=== PATIENT | male | born 1975 | race Two or more races ===

== ENCOUNTER 2021-12-06 07:06 | Outpatient (REF) | payer OTHER, SELFPAY ==
[2021-12-06 07:44] LABS: Hematocrit 39.4 % (42.0-52.0); Hemoglobin 12.5 g/dl (14.0-18.0); Mean Corpuscular HGB Conc 31.7 g/dl (31.0-36.0); Mean Corpuscular Volume 91.4 fL (80.0-98.0); Platelet Count 241 X10*3/uL (160-400); Red Blood Count 4.31 X10*6/uL (4.60-5.80); Red Cell Distribution Width 12.8 % (11.0-16.0); White Blood Count 5.5 X10*3/uL (4.8-10.8)
[2021-12-06 08:13] LABS: Estimated Average Glucose 105 mg/dL; Hemoglobin A1c % 5.3 %
[2021-12-06 08:32] LABS: Alanine Aminotransferase 21 U/L (0-40); Albumin Level 4.2 g/dL (3.5-5.0); Alkaline Phosphatase 48 U/L (39-117); Anion Gap 12 (12-20); Aspartate Amino Transferase 20 U/L (5-37); Bilirubin Total 0.3 mg/dL (0.0-1.0); Blood Urea Nitrogen 18 mg/dL (9-16); Calcium 9.6 mg/dL (8.4-10.2); Carbon Dioxide 27 mmol/L (22-29); Chloride 107 mmol/L (96-108); Cholesterol 196 mg/dL; Estimated Glomerular Filt Rate > 60; Glucose Fasting 100 mg/dL (60-99); HDL Cholesterol 40 mg/dL; LDL Cholesterol Calculated 130 mg/dl; Potassium 4.5 mmol/L (3.3-5.1); Sodium 141 mmol/L (135-145); Total Protein 7.6 g/dL (6.5-8.0); Triglycerides 132 mg/dL
[2021-12-06 08:36] LABS: TSH reflex Free T4 11.76 uIU/mL (0.32-4.0)
[2021-12-06 09:43] LABS: Free T4 (Free Thyroxine) 0.84 ng/dL (0.71-1.85)
== END 2021-12-06 07:07 | disposition home or self-care (01) ==
LOC: HO.LAB 07:06
PROVIDERS: PCP Physician Assistant; Visit Provider Physician Assistant
DX: Z13.29 Encounter for screening for other suspected endocrine disorder (principal); Z13.220 Encounter for screening for lipoid disorders
CPT/HCPCS: 36415; 80053; 80061; 83036; 84439; 84443; 85027

== ENCOUNTER 2022-03-21 06:57 | Outpatient (REF) | payer OTHER, SELFPAY ==
[2022-03-21 08:05] LABS: Estimated Average Glucose 108 mg/dL; Hemoglobin A1c % 5.4 %
[2022-03-21 08:11] LABS: Alanine Aminotransferase 15 U/L (0-40); Albumin Level 4.1 g/dL (3.5-5.0); Alkaline Phosphatase 43 U/L (39-117); Anion Gap 10 (12-20); Aspartate Amino Transferase 16 U/L (5-37); Bilirubin Total 0.2 mg/dL (0.0-1.0); Blood Urea Nitrogen 13 mg/dL (9-16); Calcium 9.3 mg/dL (8.4-10.2); Carbon Dioxide 26 mmol/L (22-29); Chloride 109 mmol/L (96-108); Cholesterol 172 mg/dL; Estimated Glomerular Filt Rate > 60; Glucose Fasting 102 mg/dL (60-99); HDL Cholesterol 41 mg/dL; LDL Cholesterol Calculated 113 mg/dl; Potassium 4.4 mmol/L (3.3-5.1); Sodium 141 mmol/L (135-145); Triglycerides 90 mg/dL
[2022-03-21 08:33] LABS: TSH reflex Free T4 9.63 uIU/mL (0.32-4.0)
== END 2022-03-21 06:58 | disposition home or self-care (01) ==
LOC: HO.LAB 06:57
PROVIDERS: Visit Provider Physician Assistant
DX: Z13.1 Encounter for screening for diabetes mellitus (principal); Z13.220 Encounter for screening for lipoid disorders; E03.9 Hypothyroidism, unspecified
CPT/HCPCS: 36415; 80053; 80061; 83036; 84439; 84443

== ENCOUNTER → 2022-10-06 14:14 | Outpatient (BNVA) | payer OTHER, SELFPAY | PROVIDERS: PCP Physician Assistant; Visit Provider Urology | DX: Z30.2 Encounter for sterilization (principal); F41.8 Other specified anxiety disorders | CPT/HCPCS: 55250 ==

== ENCOUNTER 2022-12-26 11:54 | Outpatient (REF) | payer OTHER, SELFPAY ==
[2022-12-26 12:15] LABS: Hematocrit 37.7 % (42.0-52.0); Hemoglobin 12.3 g/dl (14.0-18.0); Mean Corpuscular HGB Conc 32.6 g/dl (31.0-36.0); Mean Corpuscular Hemoglobin 29.9 pg (27.0-33.0); Mean Corpuscular Volume 91.7 fL (80.0-98.0); Mean Platelet Volume 10.5 fL (9.4-12.4); Platelet Count 238 X10*3/uL (160-400); Red Blood Count 4.11 X10*6/uL (4.60-5.80); Red Cell Distribution Width 12.2 % (11.0-16.0)
[2022-12-26 14:56] LABS: Alanine Aminotransferase 18 U/L (0-40); Albumin Level 4.3 g/dL (3.5-5.0); Alkaline Phosphatase 53 U/L (39-117); Anion Gap 11 (12-20); Aspartate Amino Transferase 18 U/L (5-37); Bilirubin Total 0.8 mg/dL (0.0-1.0); Blood Urea Nitrogen 16 mg/dL (9-16); Calcium 9.9 mg/dL (8.4-10.2); Carbon Dioxide 28 mmol/L (22-29); Chloride 105 mmol/L (96-108); Cholesterol 201 mg/dL; Estimated Glomerular Filt Rate > 60; Glucose Fasting 87 mg/dL (60-99); HDL Cholesterol 45 mg/dL; LDL Cholesterol Calculated 138 mg/dl; Potassium 4.3 mmol/L (3.3-5.1); Sodium 140 mmol/L (135-145); Total Protein 7.2 g/dL (6.5-8.0); Triglycerides 93 mg/dL
[2022-12-26 18:43] LABS: TSH reflex Free T4 8.23 uIU/mL (0.32-4.0)
== END 2022-12-26 11:55 | disposition home or self-care (01) ==
LOC: HO.LAB 11:54
PROVIDERS: PCP Physician Assistant; Visit Provider Physician Assistant
DX: E03.9 Hypothyroidism, unspecified (principal)
CPT/HCPCS: 36415; 80053; 80061; 84439; 84443; 85027

== ENCOUNTER → 2023-01-04 15:15 | Outpatient (BNVA) | payer OTHER, SELFPAY | PROVIDERS: PCP Physician Assistant; Visit Provider Urology | DX: Z13.89 Encounter for screening for other disorder (principal) ==

== ENCOUNTER 2023-06-22 06:59 | Outpatient (REF) | payer OTHER, SELFPAY ==
[2023-06-22 08:19] LABS: TSH reflex Free T4 5.91 uIU/mL (0.32-4.0)
[2023-06-22 08:57] LABS: Free T4 (Free Thyroxine) 0.85 ng/dL (0.71-1.85)
== END 2023-06-22 07:00 | disposition home or self-care (01) ==
LOC: HO.LAB 06:59
PROVIDERS: PCP Physician Assistant; Visit Provider Physician Assistant
DX: E03.9 Hypothyroidism, unspecified (principal)
CPT/HCPCS: 36415; 84439; 84443

== ENCOUNTER 2023-06-27 14:19 | Outpatient (AMB) | payer OTHER, SELFPAY ==
[2023-06-27 14:28] VITALS: BP 90/58; PULSE 76; RESP 17; O2SAT 98; BMI 28.9
--- NOTE | 2023-06-27 14:28 | A.OFFPC_ITS ---
Vital Signs 06/27/23 14:28 Height 5 ft 11.5 in Weight 210 lb BMI 28.9 BP 90/58 L Blood Pressure Location Lt brachial Position Sitting Respiration 17 Pulse 76 Pulse Source Pulse Oximeter Pulse Oximetry (%) 98 Oxygen Delivery Method Room Air Intake Visit Reasons: f/u Hypoth Outside Machinist Required: No Accompanied by: Self / Same As Patient Allergies No Known Allergies Allergy (Verified 06/27/23 14:43) Medication List - Last Reconciled 06/27/23 by Fran Schmid PA-C levothyroxine 75 mcg PO DAILY 90 days Tobacco use date assessed: 12/26/22 Dental Screening Dental Screen Date: 06/27/23 Did you have a dental visit in the last 12 months?: Yes Did you have a dental problem in the last 6 months where you did not have access to dental care?: No Was dental information given to patient?: Patient has dentist HPI f/u Hypoth HPI Details Patient is a 47-year-old male here today for follow-up visit.? Patient has a past medical history significant for hypothyroidism, obesity. Hypothyroid:? Has lost a significant amount of weight due to intermittent fasting and being more physically active. TSH has been normalizing levothyroxine. Increase levothyroxine 75 mcg. Laboratory Tests 12/26/22 06/22/23 12:03 07:14 TSH 8.23 H 5.91 H [facility] Surgical History History of vasectomy History of appendectomy Family History Mother Breast cancer Social History Housing: House Alcohol intake: current Alcohol intake frequency: holidays/special occasions only Alcohol type: beer Patient Tobacco Use Status: Never used Tobacco Tobacco use type: Cigarette e-Cigarette/Vaping Use: Never Used Second Hand Smoke Exposure: No Substance Use Type: Marijuana service: No Current occupational status: employed Current occupation: [employer] Cognitive needs: No Hearing needs: No Vision needs: Yes (glasses) Questionnaire Thrive Questionnaire Date Thrive assessed: 12/26/22 LEATHA-7 AMB Questionnaire LEATHA-7 Date LEATHA - 7 assessed: 12/26/22 Source: Developed by Drs. Kit Garcia, Renee Kwan, Blu Conley and colleagues, with an educational ester from [employer]. Review of Systems Const Denies headache(s) Eyes Denies loss of vision ENT Denies vertigo, Denies dizziness, Denies headache(s) and Denies sore throat Card Denies chest pain, Denies leg edema and Denies lightheadedness Resp Denies cough, Denies hemoptysis and Denies wheezing GI Denies abdominal pain, Denies melena, Denies constipation, Denies diarrhea and Denies vomiting Denies dysuria, Denies urinary frequency and Denies urinary urgency Musc Denies arthralgias, Denies joint swelling, Denies numbness and Denies tingling Neuro Denies Abnormal speech present, Denies behavioral changes, Denies vertigo, Denies dizziness, Denies headache(s), Denies loss of vision, Denies memory loss, Denies numbness and Denies tingling Psych Denies anxiety, Denies behavioral changes, Denies depression, Denies memory loss and Denies panic attacks Jewel/Lymph Denies easy bleeding and Denies easy bruising Aller/Immun Denies wheezing Physical exam (Primary Care) Vital Signs: Last Vital Signs Pulse 76 06/27/23 14:28 Resp 17 06/27/23 14:28 BP 90/58 L 06/27/23 14:28 Pulse Ox 98 06/27/23 14:28 Oxygen Delivery Method Room Air 06/27/23 14:28 BMI result Body Mass Index 28.9 Tobacco/Smoking Status: Tobacco use Status Tobacco use date assessed 12/26/22 06/27/23 14:33 Patient Tobacco Use Status Never used Tobacco 06/27/23 14:33 Tobacco use type Cigarette 06/27/23 14:33 e-Cigarette/Vaping Use Never Used 06/27/23 14:33 Thrive Assessment: Date of Thrive Assessment Date Thrive assessed 12/26/22 06/27/23 14:33 Const General: healthy appearing, no acute distress, alert and awake Nutritional Appearance: well nourished Orientation/consciousness: oriented to person, oriented to place and oriented to time HENMT Ears: TM's normal bilaterally General nose exam: Normal nasal mucous membranes and turbinates present Eyes Conjunctivae: conjunctivae normal Sclerae: sclerae normal Pupils: Equal, round and reactive pupils present Neck Neck: Yes no lymphadenopathy and Yes no JVD Thyroid: Thyroid normal Carotids: no bruits Resp Effort & Inspection: normal respiratory effort and not tachypneic Auscultation: no crackles, no rales, no rhonchi and no wheezes Cardio Rate: regular rate Rhythm: regular rhythm Heart sounds: no murmurs and normal S1 and S2 GI Palpation (GI): Soft to palpation, nontender, no hepatomegaly and no splenomegaly Auscultation: normal bowel sounds Skin General skin exam: no rashes or lesions noted and dry skin Neuro General: oriented to person, oriented to place and oriented to time Cranial nerves: Yes Equal, round and reactive pupils present Speech: No Abnormal speech present Gait exam (Neuro): Normal gait present Motor exam (neuro): no tremor noted Extrem Right upper extremity: full ROM Left upper extremity: full ROM Right lower extremity: full ROM; no edema Left lower extremity: full ROM; no edema Psych Mental Status: mental status grossly normal Speech and movement: Normal speech and movement present Affect: normal affect Attitude: cooperative Thought process: Normal thought process present Office Procedures Flu Questionnaire Does the patient have a severe egg allergy?: No Does the patient have severe life threatening allergies?: No Does the patient have a fever or illness today?: No Has the patient ever had Guillain-[place] Syndrome?: No Has the patient ever had any past reaction to a flu shot?: No Immunizations flu vacc [id number] 6mos up(PF) 60 mcg(15 mcgx4)/0.5 mL IM syringe Performing Provider: Fran Schmid PA-C Performing Location: [facility] Administered by: ROMAINE Cloud on 06/27/23 14:35 Dose Route Admin Location Dispensed Lot Number Expiration Date NDC Drum Reel Cutter 0.5 mL IM Left Deltoid 0.5 mL [id number] 03/24/24 58062-327-49 [employer] VIS Given Date VIS Provided VIS Publication Date 06/27/23 Single Vaccine 21 Eligibility Eligibility Date Funding Source Not [facility] Eligible 06/27/23 Private Assessment and Plan Assessment & Plan (1) Hypothyroid: Code(s): E03.9 - Hypothyroidism, unspecified Qualifiers: Hypothyroidism type: unspecified Qualified Code(s): E03.9 - Hypothyroidism, unspecified Plan: Continues on levothyroxine. Most recent TSH slightly elevated at 5. Will increase his levothyroxine dose to 75 mcg. He has been implementing an intermittent visiting diet and being more physically active and has lost 35 lb since last office visit. Orders: Orders Influenza [id number] Immunization Today Z23 - Encounter for immunization Comprehensive [place]. Panel Fast Today Z13.1 - Encounter for screening for diabetes mellitus TSH reflex Free T4 Today E03.9 - Hypothyroidism, unspecified Coding Level of Care Code Est Pt Level 3 (89217) Diagnoses Hypothyroidism, unspecified type E03.9 Hypothyroidism type: unspecified
== END 2023-06-27 14:51 | disposition home or self-care (01) ==
PROVIDERS: Visit Provider Physician Assistant
DX: Z23 Encounter for immunization (principal); E03.9 Hypothyroidism, unspecified
CPT/HCPCS: 90471; 90686; 99213

== ENCOUNTER 2023-12-29 06:04 | Outpatient (REF) | payer OTHER, SELFPAY ==
[2023-12-29 07:22] LABS: Alanine Aminotransferase 15 U/L (0-40); Albumin Level 4.2 g/dL (3.5-5.0); Alkaline Phosphatase 51 U/L (39-117); Anion Gap 12 (12-20); Aspartate Amino Transferase 20 U/L (5-37); Bilirubin Total 0.8 mg/dL (0.0-1.0); Blood Urea Nitrogen 14 mg/dL (9-16); Calcium 9.5 mg/dL (8.4-10.2); Carbon Dioxide 28 mmol/L (22-29); Chloride 104 mmol/L (96-108); Estimated Glomerular Filt Rate > 60; Glucose Fasting 93 mg/dL (60-99); Potassium 3.9 mmol/L (3.3-5.1); Sodium 140 mmol/L (135-145); Total Protein 7.7 g/dL (6.5-8.0)
== END 2023-12-29 06:05 | disposition home or self-care (01) ==
LOC: HO.LAB 06:04
PROVIDERS: PCP Physician Assistant; Visit Provider Physician Assistant
DX: Z13.1 Encounter for screening for diabetes mellitus (principal); E03.9 Hypothyroidism, unspecified
CPT/HCPCS: 36415; 80053; 84443

== ENCOUNTER 2024-01-09 13:51 | Outpatient (AMB) | payer OTHER, SELFPAY ==
[2024-01-09 13:53] VITALS: BP 102/68; BMI 28.9
--- NOTE | 2024-01-09 13:53 | MHC.PC.OV ---
Vital Signs 01/09/24 13:53 Height 5 ft 11.5 in Weight 210 lb BMI 28.9 BP 102/68 Blood Pressure Location Lt brachial Position Sitting Intake Visit Reasons: PE/ R/S from 12/31 Intake Note: Patient here for a physical exam Garage Attendant Required: No Accompanied by: Self / Same As Patient Allergies No Known Allergies Allergy (Verified 01/09/24 14:02) Medication List - Last Reconciled 01/09/24 by Fran Schmid PA-C levothyroxine 75 mcg PO DAILY 90 days Tobacco use date assessed: 01/09/24 Dental Screening Dental Screen Date: 01/09/24 Did you have a dental visit in the last 12 months?: Yes Did you have a dental problem in the last 6 months where you did not have access to dental care?: No Was dental information given to patient?: Patient has dentist HPI PE/ R/S from 12/31 HPI Details Patient is a 48-year-old male here today for an annual physical.? Patient has a past medical history significant for hypothyroidism, obesity. Hypothyroid:? Most recent TSH stable. Continues on levothyroxine 75 mcg. Weight is stable. Vaccines up-to-date with COVID vaccine, up-to-date with flu and tetanus vaccine Colon cancer screen: willing to do colonoscopy Laboratory Tests 06/22/23 12/29/23 07:14 06:24 TSH 5.91 H 3.90 PFSH Surgical History History of vasectomy History of appendectomy Family History Mother Breast cancer Social History (Updated 01/09/24 @ 14:06 by Fran Schmid PA-C) Housing: House Alcohol intake: current Alcohol intake frequency: holidays/special occasions only Alcohol type: beer Patient Tobacco Use Status: Never used Tobacco e-Cigarette/Vaping Use: Never Used Second Hand Smoke Exposure: No Substance Use Type: Marijuana service: No Current occupational status: employed Current occupation: [email or web address] Current occupational exposures/hazards: No Cognitive needs: No Hearing needs: No Vision needs: Yes (glasses) Questionnaire PHQ-9 Over the last 2 weeks, how often have you been bothered by any of the following problems? 1. Little interest or pleasure in doing things: not at all 2. Feeling down, depressed, or hopeless: not at all 3. Trouble falling or staying asleep, or sleeping too much: not at all 4. Feeling tired or having little energy: not at all 5. Poor appetite or overeating: not at all 6. Feeling bad about yourself - or that you are a failure or have let yourself or your family down: not at all 7. Trouble concentrating on things, such as reading the newspaper or watching television: not at all 8. Moving or speaking so slowly that other people could have noticed. Or the opposite - being so fidgety or restless that you have been moving around a lot more than usual: not at all 9. Thoughts that you would be better off or of hurting yourself in some way: not at all Total score: 0 Depression Screening Interpretation: Negative Depression Screening Done: Yes 99391 - PHQ-9 Billing: Yes Source: Developed by Drs. Kit Garcia, Renee Kwan, Blu Conley and colleagues, with an educational ester from [employer]. Thrive Questionnaire Date Thrive assessed: 01/09/24 I am a: Patient What is your living situation today?: I have a steady place to live Within the past 12 months, did the food you bought not last and you didn't have the money to get more?: Never true Within the past 12 months, did you worry whether your food would run out before you got money to buy more?: Never true Do you have trouble paying for medicines?: No Do you have trouble getting transportation to medical appointments?: No Do you have trouble paying your heating and electricity bill?: No Do you have trouble taking care of your child, family member or friend?: No Do you have trouble with day-to-day activities such as bathing, preparing meals, shopping, managing finances, etc.?: No Are you currently unemployed and looking for a job?: No Are you interested in more education?: No Please select the resources that you would like help with: None Currently or been in a relationship where the following occur: no concerns reported THRIVE Score: 0 AUDIT C Alcohol Use Questionnaire (AUDIT-C) 1. How often do you have a drink containing alcohol?: Never Total Score: 0 LEATHA-7 AMB Questionnaire LEATHA-7 Date LEATHA - 7 assessed: 01/09/24 Feeling nervous, anxious, or on edge: 0 = Not at all Not being able to stop or control worryin = Not at all Worrying too much about different things: 0 = Not at all Trouble relaxin = Not at all Being so restless that it is hard to sit still: 0 = Not at all Becoming easily annoyed or irritable: 0 = Not at all Feeling afraid as if something awful might happen: 0 = Not at all Total LEATHA-7 score (0-4 normal; 5-9 mild; 10-14 moderate; 15-21 severe): 0 Source: Developed by Drs. Kit Garcia, Renee Kwan, Blu Conley and colleagues, with an educational ester from [employer]. LEATHA-7 Assessment Billing LEATHA-7 Assessment Tool: LEATHA-7 Assessment 31594 Review of Systems Const Denies body aches, Denies chills, Denies excessive sweating, Denies fatigue, Denies fever(s) and Denies headache(s) Eyes Denies blurry vision ENT Denies dysphagia, Denies vertigo, Denies dizziness, Denies headache(s), Denies hearing loss and Denies tinnitus Card Denies chest pain, Denies chest pain with activity, Denies syncope, Denies irregular heart rhythm and Denies dyspnea Resp Denies chest congestion, Denies cough, Denies hemoptysis, Denies dyspnea and Denies wheezing GI Denies abdominal pain, Denies melena, Denies hematochezia, Denies coffee ground emesis, Denies dysphagia, Denies diarrhea, Denies nausea and Denies vomiting Denies difficulty urinating, Denies dysuria, Denies urinary frequency, Denies urinary hesitancy and Denies urinary urgency Musc Denies arthralgias, Denies limited range of motion, Denies muscle cramps and Denies muscle weakness Skin/Breast Denies rash and Denies skin ulcer Neuro Denies Abnormal speech present, Denies confusion, Denies vertigo, Denies dizziness, Denies syncope, Denies headache(s), Denies memory loss and Denies seizure-like activity Psych Denies anxiety, Denies confusion, Denies depression, Denies memory loss, Denies panic attacks and Denies paranoia Endo Denies excessive sweating, Denies fatigue, Denies flushing, Denies polydipsia and Denies polyuria Aller/Immun Denies wheezing Physical exam (Primary Care) Vital Signs: Last Vital Signs BP 102/68 01/09/24 13:53 BMI result Body Mass Index 28.9 Tobacco/Smoking Status: Tobacco use Status Tobacco use date assessed 01/09/24 01/09/24 13:58 Patient Tobacco Use Status Never used Tobacco 01/09/24 13:58 Tobacco use type 01/09/24 13:58 e-Cigarette/Vaping Use Never Used 01/09/24 13:58 PHQ-9: PHQ-9 Score PHQ-9: Total score 0 01/09/24 13:58 Depression Screening Interpretation: Negative Thrive Assessment: Date of Thrive Assessment Date Thrive assessed 01/09/24 01/09/24 13:58 Currently or been in a relationship where the following occur: no concerns reported Const General: cooperative, comfortable, no acute distress, alert and awake; No confusion Orientation/consciousness: oriented to person, oriented to place, patient oriented x3 and No confusion HENMT Head: Yes normocephalic Ears: external ears normal and TM's normal bilaterally Face and sinus: No sinus tenderness Mouth: Normal oral and palatal mucosa present and tongue normal Teeth and gingiva: dentition normal and gingiva normal Throat: Yes posterior oropharynx normal, Yes tonsils normal and Yes uvula midline Eyes Conjunctivae: conjunctivae normal Sclerae: sclerae normal Pupils: Equal, round and reactive pupils present EOM: EOMs intact bilaterally Direct Ophthalmoscopy: No no photophobia Neck Neck: Yes no lymphadenopathy, No tender and Yes no JVD Thyroid: Thyroid normal Carotids: no bruits Chest Chest palpation & inspection: no tenderness Resp Effort & Inspection: normal respiratory effort, no audible wheezes, not labored and no stridor Auscultation: no crackles, no rales, no rhonchi and no wheezes Cardio Jugular venous distension: no JVD Rate: regular rate, not bradycardic and not tachycardic Rhythm: regular rhythm Bruits: no carotid bruits Peripheral pulses: Peripheral pulses 2+ throughout GI Inspection: Yes normal to inspection, No abdominal wall ecchymosis and No visible herniation Palpation (GI): Soft to palpation, nontender, no guarding, not rigid and No hepatosplenomegaly present Auscultation: normoactive bowel sounds General: Yes no CVA tenderness Back/Spine/Pelvis Back: no CVA tenderness and No back tenderness Cervical Spine: cervical ROM normal Thoracic/Lumbar Spine: thoracic and lumbar spine normal to inspection, straight leg raise negative bilaterally, No thoraco-lumbar ROM limited and No lumbar spinal tenderness Skin Lesions: no lesions Rashes: no rashes Wounds: no wounds Neuro General: oriented to person, oriented to place, patient oriented x3, CN's II-XI intact bilaterally and No confusion Cranial nerves: Yes Equal, round and reactive pupils present and Yes Normal accommodation reflex present Cognition (Neuro): normal cognition Speech: No Abnormal speech present Gait exam (Neuro): Normal gait present Motor exam (neuro): 5/5 motor strength present throughout Extrem Right upper extremity: full ROM; no cyanosis Left upper extremity: full ROM; no cyanosis Right lower extremity: no edema Left lower extremity: no edema Psych Appearance: grossly normal Mental Status: mental status grossly normal Affect: normal affect Attitude: cooperative Thought process: Normal thought process present Assessment and Plan Assessment & Plan (1) Annual physical exam: Code(s): Z00.00 - Encounter for general adult medical examination without abnormal findings (2) Hypothyroid: Code(s): E03.9 - Hypothyroidism, unspecified Qualifiers: Hypothyroidism type: unspecified Qualified Code(s): E03.9 - Hypothyroidism, unspecified Plan: Patient's most recent TSH stable. Will continue current dose levothyroxine at 75 mcg. (3) Screening for diabetes mellitus (DM): Code(s): Z13.1 - Encounter for screening for diabetes mellitus (4) Colon cancer screening: Code(s): Z12.11 - Encounter for screening for malignant neoplasm of colon Plan: Willing to do colonoscopy Orders: Orders TSH reflex Free T4 Today E03.9 - Hypothyroidism, unspecified Prostate Specific Antigen Scr Today Z12.11 - Encounter for screening for malignant neoplasm of colon, Z12.5 - Encounter for screening for malignant neoplasm of prostate Comprehensive [place]. Panel Fast Today Z13.1 - Encounter for screening for diabetes mellitus Referrals Gastroenterology Referral Z12.11 - Encounter for screening for malignant neoplasm of colon Patient Instructions: Goals: Continuing good eating habits, continuing to take thyroid medication. Barriers: Access to healthy food, remembering to take thyroid medication Coding Level of Care Code Est Pt Prev Care 40-64y(23757) Diagnoses Annual physical exam Z00.00 Hypothyroidism, unspecified type E03.9 Hypothyroidism type: unspecified Screening for diabetes mellitus (DM) Z13.1 Colon cancer screening Z12.11 Additional Codes LEATHA-7 Assessment Billing - LEATHA-7 Assessment Tool: LEATHA-7 Assessment [id number] ([id number])
== END 2024-01-09 14:17 | disposition home or self-care (01) ==
PROVIDERS: PCP Physician Assistant; Visit Provider Physician Assistant
DX: Z00.00 Encounter for general adult medical examination without abnormal findings (principal); E03.9 Hypothyroidism, unspecified; Z13.1 Encounter for screening for diabetes mellitus; Z12.11 Encounter for screening for malignant neoplasm of colon
CPT/HCPCS: 99396

== ENCOUNTER 2025-01-13 13:23 | Outpatient (AMB) | payer BC, SELFPAY ==
[2025-01-13 13:25] VITALS: BP 110/52; PULSE 64; TEMP 36.3; O2SAT 97
--- NOTE | 2025-01-13 13:25 | A.OFFPC_ITS ---
Vital Signs 01/13/25 13:25 Height 5 ft 11.5 in Weight 218 lb 4 oz BMI 30.0 BP 110/52 L Blood Pressure Location Lt brachial Position Sitting Pulse 64 Pulse Source Pulse Oximeter Temp 97.3 F Temp Source Temporal Artery Scan Pulse Oximetry (%) 97 Oxygen Delivery Method Room Air Intake Visit Reasons: PE Allergies No Known Allergies Allergy (Verified 01/13/25 13:34) Medication List - Last Reconciled 01/13/25 by Fran Schmid PA-C levothyroxine 75 mcg PO DAILY 90 days Tobacco use date assessed: 01/09/24 Dental Screening Dental Screen Date: 01/09/24 HPI PE HPI Details Patient is a 49-year-old male here today for an annual physical.? Patient has a past medical history significant for hypothyroidism, obesity. concerns--> patient reports having bilateral elbow pain over the last few months. He denies any trauma to his upper extremities. He has been using ibuprofen and icing at home though has not been too effective. He reports the pain as located mostly in his medial aspect of his elbow. He denies any numbness or tingling in his forearms or hands Hypothyroid:? Most recent TSH stable. Continues on levothyroxine 75 mcg. Weight is stable. Vaccines up-to-date with COVID vaccine, up-to-date with flu and tetanus vaccine Colon cancer screen: willing to do colonoscopy [facility] Surgical History History of vasectomy History of appendectomy Family History Mother Breast cancer Social History (Updated 01/13/25 @ 13:39 by Fran Schmid PA-C) Housing: House Alcohol intake: current Alcohol intake frequency: holidays/special occasions only Alcohol type: beer Patient Tobacco Use Status: Never used Tobacco e-Cigarette/Vaping Use: Never Used Second Hand Smoke Exposure: No Substance Use Type: Marijuana service: No Current occupational status: employed 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 1. Little interest or pleasure in doing things: not at all 2. Feeling down, depressed, or hopeless: not at all 3. Trouble falling or staying asleep, or sleeping too much: not at all 4. Feeling tired or having little energy: not at all 5. Poor appetite or overeating: not at all 6. Feeling bad about yourself - or that you are a failure or have let yourself or your family down: not at all 7. Trouble concentrating on things, such as reading the newspaper or watching television: not at all 8. Moving or speaking so slowly that other people could have noticed. Or the opposite - being so fidgety or restless that you have been moving around a lot more than usual: not at all 9. Thoughts that you would be better off or of hurting yourself in some way: not at all Total score: 0 Depression Screening Interpretation: Negative Depression Screening Done: Yes 28070 - PHQ-9 Billing: Yes Source: Developed by Drs. Kit Garcia, Renee Kwan, Blu Conley and colleagues, with an educational ester from [employer]. Thrive Questionnaire Date Thrive assessed: 01/13/25 I am a: Patient What is your living situation today?: I have a steady place to live Within the past 12 months, did the food you bought not last and you didn't have the money to get more?: I choose not to answer this question Within the past 12 months, did you worry whether your food would run out before you got money to buy more?: I choose not to answer this question Do you have trouble paying for medicines?: No Do you have trouble getting transportation to medical appointments?: No Do you have trouble paying your heating and electricity bill?: No Do you have trouble taking care of your child, family member or friend?: No Do you have trouble with day-to-day activities such as bathing, preparing meals, shopping, managing finances, etc.?: No Are you currently unemployed and looking for a job?: No Are you interested in more education?: No Please select the resources that you would like help with: None Currently or been in a relationship where the following occur: No concerns reported THRIVE Score: 0 AUDIT C Alcohol Use Questionnaire (AUDIT-C) 1. How often do you have a drink containing alcohol?: Monthly or less 2. How many drinks containing alcohol do you have on a typical day when you are drinking?: 1 or 2 3. How often do you have six or more drinks on one occasion?: Never Total Score: 1 LEATHA-7 AMB Questionnaire LEATHA-7 Date LEATHA - 7 assessed: 01/13/25 Feeling nervous, anxious, or on edge: 0 = Not at all Not being able to stop or control worryin = Not at all Worrying too much about different things: 0 = Not at all Trouble relaxin = Not at all Being so restless that it is hard to sit still: 0 = Not at all Becoming easily annoyed or irritable: 0 = Not at all Feeling afraid as if something awful might happen: 0 = Not at all Total LEATHA-7 score (0-4 normal; 5-9 mild; 10-14 moderate; 15-21 severe): 0 Source: Developed by Drs. Kit Garcia, Renee Kwan, Blu Conley and colleagues, with an educational ester from [employer]. LEATHA-7 Assessment Billing LEATHA-7 Assessment Tool: LEATHA-7 Assessment 40035 Review of Systems Const Denies body aches, Denies chills, Denies excessive sweating, Denies fatigue, Denies fever(s) and Denies headache(s) Eyes Denies blurry vision ENT Denies dysphagia, Denies vertigo, Denies dizziness, Denies headache(s), Denies hearing loss and Denies tinnitus Card Denies chest pain, Denies chest pain with activity, Denies syncope, Denies irregular heart rhythm and Denies dyspnea Resp Denies chest congestion, Denies cough, Denies hemoptysis, Denies dyspnea and Denies wheezing GI Denies abdominal pain, Denies melena, Denies hematochezia, Denies coffee ground emesis, Denies dysphagia, Denies diarrhea, Denies nausea and Denies vomiting Denies difficulty urinating, Denies dysuria, Denies urinary frequency, Denies urinary hesitancy and Denies urinary urgency Musc Denies arthralgias, Denies limited range of motion, Denies muscle cramps and Denies muscle weakness Skin/Breast Denies rash and Denies skin ulcer Neuro Denies Abnormal speech present, Denies confusion, Denies vertigo, Denies dizziness, Denies syncope, Denies headache(s), Denies memory loss and Denies seizure-like activity Psych Denies anxiety, Denies confusion, Denies depression, Denies memory loss, Denies panic attacks and Denies paranoia Endo Denies excessive sweating, Denies fatigue, Denies flushing, Denies polydipsia and Denies polyuria Aller/Immun Denies wheezing Physical exam (Primary Care) Vital Signs: Last Vital Signs Temp 97.3 F 01/13/25 13:25 Pulse 64 01/13/25 13:25 BP 110/52 L 01/13/25 13:25 Pulse Ox 97 01/13/25 13:25 Oxygen Delivery Method Room Air 01/13/25 13:25 BMI result Body Mass Index 30.0 BMI Assessment/Plan discussion: High BMI High, discussed plan: lifestyle, weight reduction, dietary and physical activity Tobacco/Smoking Status: Tobacco use Status Tobacco use date assessed 01/09/24 01/13/25 13:25 Patient Tobacco Use Status Never used Tobacco 01/13/25 13:25 Tobacco use type 01/09/24 14:16 e-Cigarette/Vaping Use Never Used 01/13/25 13:25 PHQ-9: PHQ-9 Score PHQ-9: Total score 0 01/13/25 13:31 Depression Screening Interpretation: Negative Thrive Assessment: Date of Thrive Assessment Date Thrive assessed 01/13/25 01/13/25 13:31 Currently or been in a relationship where the following occur: No concerns reported Const General: cooperative, comfortable, no acute distress, alert and awake; No confusion Orientation/consciousness: oriented to person, oriented to place, patient oriented x3 and No confusion HENMT Head: Yes normocephalic Ears: external ears normal and TM's normal bilaterally Face and sinus: No sinus tenderness Mouth: Normal oral and palatal mucosa present and tongue normal Teeth and gingiva: dentition normal and gingiva normal Throat: Yes posterior oropharynx normal, Yes tonsils normal and Yes uvula midline Eyes Conjunctivae: conjunctivae normal Sclerae: sclerae normal Pupils: Equal, round and reactive pupils present EOM: EOMs intact bilaterally Direct Ophthalmoscopy: No no photophobia Neck Neck: Yes no lymphadenopathy, No tender and Yes no JVD Thyroid: Thyroid normal Carotids: no bruits Chest Chest palpation & inspection: no tenderness Resp Effort & Inspection: normal respiratory effort, no audible wheezes, not labored and no stridor Auscultation: no crackles, no rales, no rhonchi and no wheezes Cardio Jugular venous distension: no JVD Rate: regular rate, not bradycardic and not tachycardic Rhythm: regular rhythm Bruits: no carotid bruits Peripheral pulses: Peripheral pulses 2+ throughout GI Inspection: Yes normal to inspection, No abdominal wall ecchymosis and No visible herniation Palpation (GI): Soft to palpation, nontender, no guarding, not rigid and No hepatosplenomegaly present Auscultation: normoactive bowel sounds General: Yes no CVA tenderness Back/Spine/Pelvis Back: no CVA tenderness and No back tenderness Cervical Spine: cervical ROM normal Thoracic/Lumbar Spine: thoracic and lumbar spine normal to inspection, straight leg raise negative bilaterally, No thoraco-lumbar ROM limited and No lumbar spinal tenderness Skin Lesions: no lesions Rashes: no rashes Wounds: no wounds Neuro General: oriented to person, oriented to place, patient oriented x3, CN's II-XI intact bilaterally and No confusion Cranial nerves: Yes Equal, round and reactive pupils present and Yes Normal accommodation reflex present Cognition (Neuro): normal cognition Speech: No Abnormal speech present Gait exam (Neuro): Normal gait present Motor exam (neuro): 5/5 motor strength present throughout Extrem Right upper extremity: full ROM; no cyanosis Left upper extremity: full ROM; no cyanosis Right lower extremity: no edema Left lower extremity: no edema Psych Appearance: grossly normal Mental Status: mental status grossly normal Affect: normal affect Attitude: cooperative Thought process: Normal thought process present Coding Level of Care Code Est Pt Prev Care 40-64y(61135) Diagnoses Annual physical exam Z00.00 Hypothyroidism, unspecified type E03.9 Hypothyroidism type: unspecified Borderline high cholesterol E78.9 Class 1 obesity E66.811 Medial epicondylitis of left elbow M77.02 Additional Codes LEATHA-7 Assessment Billing - LEATHA-7 Assessment Tool: LEATHA-7 Assessment 66539 ([id number]) PHQ-9 - 81836 - PHQ-9 Billing: Yes ([id number]) Assessment & Plan Assessment & Plan (1) Annual physical exam: Code(s): Z00.00 - Encounter for general adult medical examination without abnormal findings Category: Medical Plan: As per HPI (2) Hypothyroid: Code(s): E03.9 - Hypothyroidism, unspecified Category: Medical Qualifiers: Hypothyroidism type: unspecified Qualified Code(s): E03.9 - Hypothyroidism, unspecified Plan: Patient has been stable current dose of levothyroxine. Advised to get fasting labs done ANGELIQUE to evaluate TSH to assure normal. (3) Borderline high cholesterol: Code(s): E78.9 - Disorder of lipoprotein metabolism, unspecified Category: Medical Plan: Patient has a history of borderline high total cholesterol. Will recheck fasting lipids to ensure stable. Goal total cholesterol to be below 200. (4) Class 1 obesity: Code(s): E66.811 - Obesity, class 1 Category: Medical Plan: Patient does understand his BMI is over thirty will work on being more physically active and adapting to better eating habits to reduce his weight (5) Medial epicondylitis of left elbow: Code(s): M77.02 - Medial epicondylitis, left elbow Category: Medical Plan: As per HPI patient seems to be having bilateral medial epicondylitis worse on the left side. He has been doing conservative management with NSAID, rest, icing and using a compression sleeve though have not been effective over the last few months. We did discuss doing physical therapy though he would like to hold off. He is interested in his seeing orthopedics for possible injection. Orders: Orders XR elbow LT 2V Today M77.02 - Medial epicondylitis, left elbow Referrals Orthopedics Referral M77.02 - Medial epicondylitis, left elbow Gastroenterology Referral Z12.11 - Encounter for screening for malignant neoplasm of colon
== END 2025-01-13 13:52 | disposition home or self-care (01) ==
LOC: HO.HMCH 13:24
PROVIDERS: PCP Physician Assistant; Visit Provider Physician Assistant
DX: Z00.00 Encounter for general adult medical examination without abnormal findings (principal); E66.811 Obesity, class 1; Z68.30 Body mass index [BMI] 30.0-30.9, adult; E03.9 Hypothyroidism, unspecified; E78.9 Disorder of lipoprotein metabolism, unspecified; M77.02 Medial epicondylitis, left elbow

== ENCOUNTER → 2025-01-13 13:23 | Outpatient (BNVA) | payer BC, SELFPAY | PROVIDERS: PCP Physician Assistant; Visit Provider Physician Assistant | DX: Z00.00 Encounter for general adult medical examination without abnormal findings (principal); E03.9 Hypothyroidism, unspecified; E78.9 Disorder of lipoprotein metabolism, unspecified; E66.811 Obesity, class 1; Z68.30 Body mass index [BMI] 30.0-30.9, adult; M77.02 Medial epicondylitis, left elbow; Z79.899 Other long term (current) drug therapy | CPT/HCPCS: 96127 ==

== ENCOUNTER 2025-05-05 08:16 | Outpatient (AMB) | payer BC, SELFPAY ==
--- NOTE | 2025-05-05 08:21 | A.OFFVIS_ITS ---
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 Patient was seen by his PCP for elbow pain that had been present for a few months, history of localized left medial elbow pain. Reports of taking NSAID's, use of compression sleeve and icing without much relief. Referred to orthopedics to discuss possible cortisone injection. Today patient reports bilateral elbow pain with his left being the worse. He complains of constant elbow pain and tenderness at the medial aspect of elbow. Complaints of tingling sensations and numbness in the mornings. Denies injury. Finds temporary relief with voltarin gel. 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 He patient states the pain is worse with lifting and repetitive motion. 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 He denies intermittent numbness and tingling. He has been taking anti-inflammatories and using compression with minimal relief. No other treatments to date. 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 No erythema or swelling. ROM full without pain. Tenderness over the medial epicondyle and pain with resisted wrist flexion. NVI. Assessment & Plan Assessment & Plan (1) Medial epicondylitis of left elbow: Code(s): M77.02 - Medial epicondylitis, left elbow Category: Medical Plan: We discussed options today which includes physical therapy and anti- inflammatories. An order for occupational therapy was placed and he was given the contact information to make an appointment. I did send a prescription for ibuprofen 800 mg t.i.d. to the pharmacy which he should take for 2 weeks to help with the acute flare-ups. He was also fit for a counterforce elbow brace in the office today which she will use with working. If symptoms persist or worsen over the next 8-12 weeks he can contact our office for a steroid injection otherwise follow up as needed. Orders: Orders OT Evaluation and Treatment Today M77.02 - Medial epicondylitis, left elbow Medications: New ibuprofen 800 mg PO Q8H PRN 90 tabs 3RF pain 30 days Coding Level of Care Code New Pt Level 3 (41230) Complex EM visit Add On G2211 Diagnoses Medial epicondylitis of left elbow M77.02
== END 2025-05-05 09:16 | disposition home or self-care (01) ==
LOC: HO.HOS 08:16
PROVIDERS: PCP Physician Assistant; Visit Provider Physician Assistant
DX: M77.02 Medial epicondylitis, left elbow (principal)
CPT/HCPCS: 99203

== ENCOUNTER 2025-06-09 15:23 | Outpatient (AMB) | payer BC, SELFPAY ==
--- NOTE | 2025-06-09 15:28 | MHC.OFFVIS ---
Vital Signs 06/09/25 15:29 Height 5 ft 11 in Weight 215 lb BMI 30.0 BP 118/80 Blood Pressure Location Rt brachial Position Sitting Pulse 58 Pulse Source Pulse Oximeter Pulse Oximetry (%) 98 Oxygen Delivery Method Room Air Intake Visit Reasons: colo screening Intake Note: New pt for intial colo screening. CC; Pt denies any GI sx or concerns at this time. No pertinent FMHx. Body Die Maker Required: No Accompanied by: Self / Same As Patient Allergies No Known Allergies Allergy (Verified 05/05/25 08:27) HPI HPI colo screening: Details: 49 year old? male with past medical history of hypothyroidism is here today for pre colonoscopy screening.? Patient was sent to us by his PCP.? This is his first colonoscopy screening.? Patient denies any gastrointestinal symptoms in the past or at present.? Denies any personal or family history of gastrointestinal disease, colon polyps, or CRC.? Denies history of difficulty with sedation or anesthesia in the past.? Negative for history of sleep apnea.? Denies any history of cardiac, renal, pulmonary, or hepatic disease.?? No history of infectious? diseases like hepatitis A, B, C, HIV or tuberculosis.? 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 Current occupational exposures/hazards: No Cognitive needs: No Hearing needs: No Vision needs: Yes (glasses) Review of Systems Const Denies weight gain and Denies weight loss ENT Reports no additional complaints, Denies dysphagia and Denies odynophagia Card Reports no additional complaints Resp Reports no additional complaints GI Denies abdominal pain, Denies belching, Denies melena, Denies bloating, Denies change in bowel habits, Denies dysphagia, Denies excessive flatus, Denies dyspepsia, Denies heartburn, Denies diarrhea, Denies loose stools, Denies nausea, Denies odynophagia and Denies vomiting Reports no additional complaints Musc Reports no additional complaints Neuro Reports no additional complaints Psych Reports no additional complaints Endo Reports no additional complaints Physical Exam Vital Signs: Last Vital Signs Pulse 58 06/09/25 15:29 BP 118/80 06/09/25 15:29 Pulse Ox 98 06/09/25 15:29 Oxygen Delivery Method Room Air 06/09/25 15:29 BMI result Body Mass Index 30.0 Const General: healthy appearing, no acute distress and well developed Nutritional Appearance: well nourished Orientation/consciousness: patient oriented x3 Resp Effort & Inspection: normal respiratory effort, able to speak in complete sentences, no tracheal deviation and symmetric chest movement Auscultation: clear to auscultation bilaterally Cardio Rate: regular rate GI Inspection: Yes normal to inspection and No distended Palpation (GI): Soft to palpation, not firm, nontender and No hepatosplenomegaly present Auscultation: normal bowel sounds General: Yes no CVA tenderness Back/Spine/Pelvis Back: no CVA tenderness Skin General skin exam: elasticity normal, turgor normal and dry skin Neuro General: patient oriented x3 Psych Appearance: grossly normal Mental Status: mental status grossly normal Assessment & Plan Assessment & Plan (1) Colon cancer screening: Code(s): Z12.11 - Encounter for screening for malignant neoplasm of colon Category: Medical Plan Patient denies any GI, cardiac or respiratory symptoms.? Denies any issues with anesthesia in the past.? Denies any history of sleep apnea.? No history infectious diseases in the past or present.? Not on any anticoagulation therapy.? No family or personal history of colon cancer or polyps.? Patient denies melena, hematochezia, unintentional weight loss or ribbon like stools.? Discussed at length the pre-procedure,? prep, diet & medications as well as what to expect prior, during and after the procedure.?? Stressed the importance of good bowel prep.? Recommended the use of Vaseline or Calmoseptine OTC & baby wipes with bowel movements to promote comfort.? ?Patient verbalizes understanding and agrees to plan of care.? He was given the opportunity to ask questions and all questions answered.? We will see him after the procedure.? Medications: New bisacodyl (Dulcolax (bisacodyl)) take 4 tabs at noon the day before your colonoscopy 20 mg (4 x 5 mg) PO ONCE 4 tabs 0RF constipation 1 day Z12.11 - Encounter for screening for malignant neoplasm of colon polyethylene glycol 3350 (Miralax) As directed by gastroenterology department at [facility] 238 grams PO ONCE 238 grams 0RF Z12.11 - Encounter for screening for malignant neoplasm of colon Coding Level of Care Code New Pt Level 3 (30666) Diagnoses Colon cancer screening Z12.11 Time Spent (min) 40 Comment 30 minutes spent with patient and additional 10 minutes spent reviewing his records
[2025-06-09 15:29] VITALS: BP 118/80; PULSE 58; O2SAT 98
== END 2025-06-09 16:03 | disposition home or self-care (01) ==
LOC: HO.HGI 15:24
PROVIDERS: PCP Physician Assistant; Visit Provider Nurse Practitioner Family
DX: Z01.818 Encounter for other preprocedural examination (principal); Z12.11 Encounter for screening for malignant neoplasm of colon
CPT/HCPCS: S0285

== ENCOUNTER 2025-06-16 12:48 | Outpatient (RCR) | payer BC, SELFPAY ==
--- NOTE | 2025-06-02 08:44 | MHC.OT.EP ---
[facility] Office [address] [phone] F: [phone] F: [phone] Occupational Therapy Plan of Care Patient Name: Jess Merino Date of Evaluation: 06/02/25 Diagnosis: Left Medial Epicondylitis Pain Location: Low resting pain left elbow > right Tender to palpate medial epicondyles Burning occasionally Pain Score: 3 Pain Scale Used: Numeric (0 - 10) Aggravating Factors: Heavy use, flexion Alleviating Factors: Volteran cream, wears sleeves at work, has tried CFB for sleeping only Assessment: 49 yo male presents w/ persistent elbow pain for about eight months, left worse than right. He was referred to [facility], discussed conservative options and referred to OT. He will have follow up if needed for cortisone injection. On assessment today, he has tenderness localized to B/L medial epicondyles, left worse than right. He has no loss of strength, sensation or coordination, but does report occasional nighttime numbness in middle fingers (although being mindful now of sleep positions). We will continue outpatient therapy for conservative management of B/L medial epicondylitis w/ strengthing, massage, activity modification and progression of strengthening. Frequency and Duration: The patient will be seen 2x/wk for 4 weeks Short Term Goals: Ind w/ HEP Ind w/ use of ice and heat appropriately Progress to strengthening program Pt to reports ease w/ sleeping Alf Goals: Ind w/ progression of therapy Pt to report pain free lifting >35lb at work Good follow through w/ activity modifications Treatment Plan: Therapeutic Exercise Therapeutic Activity Home Exercise Program Splinting Patient Education ADL Training Ultrasound Iontophoresis MHP Cold Packs Joint Mobilization Soft Tissue Mobilization Kinesiotaping Ionto w/ dex Consider nighttime wrist orthosis PRN Electronically Signed By: Dee Jimenez OTR/L CHT Please Sign and return to therapist. Thank you once again for your referral.
--- NOTE | 2025-07-14 10:48 | MHC.OT.DC ---
[facility] Office [address] [phone] F: [phone] F: [phone] Occupational Therapy Discharge Note Patient Name: Jess Merino Provider: Qasim Hamilton Diagnosis: Left Medial Epicondylitis Date of Surgery: Date of Evaluation: 06/02/25 Date of Discharge: 07/14/25 Treatments to Date: 3 Cancellations to Date: 3 No Shows to Date: Discharge Status: Discharge Summary: Jess was referred to OT w/ left medial epicondylitis. He was seen for three visits and at that time had good follow through w/ CFB wear, sleep position changes and overall joint protection. He had been doing well w/ start of strengthening and added wrist/forearm exercises, but has cancelled last three visits with no more scheduled. We will be discharging from therapy services at this time. Electronically Signed By: ARY Goldstein/Liliana MARCELINO Reviewed/agree with student documentation: Therapist: ARY Goldstein/Liliana MARCELINO Please Sign and return to therapist, thank you for your referral.
== END 2025-07-14 10:49 | disposition home or self-care (01) ==
LOC: HO.OT 12:48
PROVIDERS: PCP Physician Assistant; Visit Provider Physician Assistant
DX: M77.02 Medial epicondylitis, left elbow (principal); M77.01 Medial epicondylitis, right elbow
CPT/HCPCS: 97033; 97110; 97140; 97165